=== PATIENT | male | born 1955 | race Two or more races ===

== ENCOUNTER 2017-10-28 13:25 | Emergency (ER) | payer OTHER ==
[~2017-10-28] VITALS: Ht 177.8 cm; Wt 77.1 kg
[2017-10-28 13:46] VITALS: BP 128/61
== END 2017-10-28 16:30 | disposition home or self-care (01) ==
LOC: ER 13:25
DX: S00.452A Superficial foreign body of left ear, initial encounter (principal); I10 Essential (primary) hypertension; E11.9 Type 2 diabetes mellitus without complications; Y99.8 Other external cause status; Y93.89 Activity, other specified; Y92.89 Other specified places as the place of occurrence of the external cause
CPT/HCPCS: 69200